=== PATIENT | female | born 1975 | race Caucasian/White ===

== ENCOUNTER → 2022-11-10 | Emergency (ER) | payer BC, OTHER ==
[~2022-11-10] VITALS: Ht 172.7 cm; Wt 115.7 kg
--- NOTE | 2022-11-10 11:35 | NUR ---
PATIENT CAME TO EMERGENCY DEPARTMENT WITH COMPLAINTS OF INJURY ON LEFT ANKLE AREA .ALERT AND ORIENTED.ON ROOM AIR.PATIENT ATTACHED TO [employer] AND PULSE OXYMETER. SAFTY PRECAUTIONS ARE IN PLACE.AWAITING FOR MD FOR EVALUATION.
--- NOTE | 2022-11-10 11:45 | NUR ---
EMT AT BED SIDE FOR CLEANING THE WOUND
--- NOTE | 2022-11-10 12:09 | NUR ---
DR REDMOND AT BED SIDE
--- NOTE | 2022-11-10 13:35 | NUR ---
DR REDMOND AT BED SIDE FOR SUTURING.
--- NOTE | 2022-11-10 13:53 | NUR ---
WOUND CLEANED BY EMT
[2022-11-10 13:54] VITALS: BP 111/74; TEMP 98.5; O2SAT 99
--- NOTE | 2022-11-10 14:29 | NUR ---
Patient discharged to home in stable condition. Written and verbal after care instructions given. Patient verbalizes understanding of instruction.
== END | disposition home or self-care (01) ==
LOC: ER 11:31
DX: S91.012A Laceration without foreign body, left ankle, initial encounter (principal); W18.39XA Other fall on same level, initial encounter; Y93.89 Activity, other specified; Y92.89 Other specified places as the place of occurrence of the external cause; Y99.8 Other external cause status
CPT/HCPCS: 73610-TC